=== PATIENT | female | born 1975 | race Caucasian/White ===

== ENCOUNTER 2019-07-03 12:46 | Emergency (ER) | payer OTHER ==
--- NOTE | 2019-07-03 13:12 | EDM.PDOC ---
ED HPI GENERAL MEDICAL PROBLEM - General Stated Complaint: HEART RATE DROPPED Time Seen by Provider: 07/03/19 13:11 Source of Information: Reports: Patient History Limitations: Reports: No Limitations - History of Present Illness INITIAL COMMENTS - FREE TEXT/NARRATIVE: 43-year-old female who reports that she did not really sleep well last night and she was somewhat tired today and it was busy this morning so she didn't eat breakfast and at approximately 11:30 AM she was feeling hungry, almost some nausea and she went to the cafeteria (as she works here at [facility], [place]) and ate lunch. Following lunch she was sitting should begin to feel somewhat dizzy and weak and felt like everything was going black. She looked at her foot but at that time and noted that her heart rate was 44. These symptoms lasted for about 30 minutes but seemed to be going away area after about 5 minutes. She did not pass out completely. She was brought over here by one of the nurses to the emergency department for evaluation at that time. She had no chest pain or shortness of breath. She did have some nausea but she had no vomiting. She now feels improved but feels quite anxious about this occurring. She apparently had a similar episode that was less severe while she was driving about 2-3 weeks ago. She pulled over and stopped and drank some water and rested and her symptoms are gone in about 5 minutes. No fevers. No chills. No abdominal pain. She really had no pain associated with this. She reports her pain as a 0/10. No diarrhea. No trauma. There are no other associated signs or symptoms. There are no other modifying factors. Onset: Today Duration: Improving Location: Reports: Other (No pain) Quality: Reports: Other (Not applicable) Severity: Moderate Improves with: Reports: Rest (And time) Worsens with: Reports: None Context: Reports: Other (As above) Associated Symptoms: Reports: Nausea/Vomiting, Weakness Treatments DIGITAL MEDIA INTERN: Reports: Other (see below) (Nothing) - Related Data Allergies Allergy/AdvReac Type Severity Reaction Status Date / Time No Known Allergies Allergy Verified 07/03/19 13:02 Home Meds: Home Meds Ibuprofen 800 mg PO ASDIRECTED PRN 07/03/19 [History] Levothyroxine Sodium 137 mcg PO ACBREAKFAST 07/03/19 [History] Past Medical History Cardiovascular History: Reports: Hypertension (She has not been on any antihypertensive medications for the past 13 years. 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[facility], [place]) ED ROS GENERAL - Review of Systems Review Of Systems: See Below Constitutional: Reports: Weakness (Generalized associated with this episode) HEENT: Reports: No Symptoms Respiratory: Reports: No Symptoms Cardiovascular: Reports: Lightheadedness, Other (Near syncope) Endocrine: Reports: No Symptoms GI/Abdominal: Reports: Nausea (Associated with this episode, resolved now) : Reports: No Symptoms Musculoskeletal: Reports: No Symptoms Skin: Reports: No Symptoms Neurological: Reports: Dizziness, Other (Near syncope) Psychiatric: Reports: Anxiety Hematologic/Lymphatic: Reports: No Symptoms Immunologic: Reports: No Symptoms ED EXAM, DIZZINESS - Physical Exam Exam: See Below Exam Limited By: No Limitations General Appearance: Alert, Anxious, Mild Distress, Obese Eye Exam: Bilateral Eye: EOMI, Normal Inspection, PERRL Ears: Normal External Exam, Hearing Grossly Normal Nose: Normal Inspection, Normal Mucosa, No Blood Throat/Mouth: Normal Inspection, Normal Lips, Normal Oropharynx, Normal Voice, No Airway Compromise Head Exam: Atraumatic, Normocephalic Neck: Normal Inspection, Supple, Non-Tender, Full Range of Motion Respiratory/Chest: No Respiratory Distress, Lungs Clear, Normal Breath Sounds, No Accessory Muscle Use, Chest Non-Tender Cardiovascular: Normal Peripheral Pulses, Regular Rate, Rhythm, No JVD GI/Abdominal: Normal Bowel Sounds, Soft, Non-Tender, No Mass Neurological: Alert, Normal Dorsiflexion, CN II-XII Intact, Normal Plantar Flexion, No Motor/Sensory Deficits, Oriented x 3 Back Exam: Normal Inspection, Full Range of Motion Extremities: Normal Inspection, Normal Range of Motion, Non-Tender, No Pedal Edema, Normal Capillary Refill Psychiatric: Anxious Skin Exam: Warm, Dry, Intact, Normal Color, No Rash EKG INTERPRETATION EKG Date: 07/03/19 Time: 12:45 Rhythm: NSR Rate (Beats/Min): 56 Bouse: Normal P-Wave: Present QRS: Other (Some evidence of LVH but normal otherwise) ST-T: Normal QT: Prolonged (Slightly prolonged) Comparison: NA - No Prior EKG Course - Vital Signs Last Recorded V/S: Last Vital Signs Temp 36.7 C 07/03/19 17:35 Pulse 68 07/03/19 17:35 Resp 18 07/03/19 17:35 BP 148/85 H 07/03/19 17:35 Pulse Ox 100 07/03/19 17:35 Orthostatic Blood Pressure [ 149/88 Standing] Orthostatic Blood Pressure [ 161/101 Sitting] Orthostatic Blood Pressure [ 144/77 Supine] No orthostatic changes on blood pressure or pulse. And patient felt well without dizziness or weakness when standing or changing position. - Orders/Labs/Meds Orders: Active Orders 24 hr Category Date Time Status Cardiac Monitoring [RC] .As Directed Care 07/03/19 13:25 Active Orthostatic Vital Signs [RC] ONETIME Care 07/03/19 13:25 Active EKG 12 Lead [EK] Routine Ther 07/03/19 13:24 Ordered Labs: Laboratory Tests 07/03/19 07/03/19 07/03/19 Range/Units 12:45 12:45 13:30 WBC 6.5 (4.5-12.0) X10-3/uL RBC 4.28 (3.23-5.20) x10(6)uL Hgb 12.6 (11.5-15.5) g/dL Hct 37.7 (30.0-51.3) % MCV 88.2 (80-96) fL MCH 29.4 (27.7-33.6) pg MCHC 33.3 (32.2-35.4) g/dL RDW 12.3 (11.5-15.5) % Plt Count 306 (125-369) X10(3)uL MPV 7.3 L (7.4-10.4) fL Neut % (Auto) 44.7 L (46-82) % Lymph % (Auto) 44.6 H (13-37) % Hampton % (Auto) 7.6 (4-12) % Eos % (Auto) 2 (1.0-5.0) % Baso % (Auto) 1 (0-2) % Neut # (Auto) 2.9 (1.6-8.3) # Lymph # (Auto) 2.9 (0.6-5.0) # Hampton # (Auto) 0.5 (0.0-1.3) # Eos # (Auto) 0.1 (0.0-0.8) # Baso # (Auto) 0.1 (0.0-0.2) # Sodium 139 (135-145) mmol/L Potassium 3.9 (3.5-5.3) mmol/L Chloride 102 (100-110) mmol/L Carbon Dioxide 26 (21-32) mmol/L BUN 13 (7-18) mg/dL Creatinine 1.0 (0.55-1.02) mg/dL Est Cr Clr Drug Dosing 76.59 mL/min Estimated GFR (MDRD) > 60 (>60) BUN/Creatinine Ratio 13.0 (9-20) Glucose 98 (80-116) mg/dL Calcium 9.0 (8.6-10.2) mg/dL Magnesium 1.9 (1.8-2.5) mg/dL Total Bilirubin 0.4 (0.1-1.3) mg/dL AST 18 (5-25) IU/L ALT 25 (12-36) U/L Alkaline Phosphatase 63 (56-112) IU/L Total Protein 8.1 H (6.0-8.0) g/dL Albumin 4.0 (3.5-5.2) g/dL Globulin 4.1 g/dL Albumin/Globulin Ratio 1.0 TSH, Ultra Sensitive 1.11 (0.36-3.74) IU/mL Urine Color (YELLOW) Urine Appearance (CLEAR) Urine pH (5.0-6.5) Ur Specific Oblong (1.010-1.025) Urine Protein (NEGATIVE) mg/dL Urine Glucose (UA) (NORMAL) mg/dL Urine Ketones (NEGATIVE) mg/dL Urine Occult Blood (NEGATIVE) Urine Nitrite (NEGATIVE) Urine Bilirubin (NEGATIVE) Urine Urobilinogen (NEGATIVE) mg/dL Ur Leukocyte Esterase (NEGATIVE) Urine RBC (0-5) Urine WBC (0-5) Ur Squamous Epith Cells (NS,R,O) Urine Bacteria (NS) Urine HCG, Qual (NEGATIVE) 07/03/19 07/03/19 Range/Units 14:08 14:08 WBC (4.5-12.0) X10-3/uL RBC (3.23-5.20) x10(6)uL Hgb (11.5-15.5) g/dL Hct (30.0-51.3) % MCV (80-96) fL MCH (27.7-33.6) pg MCHC (32.2-35.4) g/dL RDW (11.5-15.5) % Plt Count (125-369) X10(3)uL MPV (7.4-10.4) fL Neut % (Auto) (46-82) % Lymph % (Auto) (13-37) % Hampton % (Auto) (4-12) % Eos % (Auto) (1.0-5.0) % Baso % (Auto) (0-2) % Neut # (Auto) (1.6-8.3) # Lymph # (Auto) (0.6-5.0) # Hampton # (Auto) (0.0-1.3) # Eos # (Auto) (0.0-0.8) # Baso # (Auto) (0.0-0.2) # Sodium (135-145) mmol/L Potassium (3.5-5.3) mmol/L Chloride (100-110) mmol/L Carbon Dioxide (21-32) mmol/L BUN (7-18) mg/dL Creatinine (0.55-1.02) mg/dL Est Cr Clr Drug Dosing mL/min Estimated GFR (MDRD) (>60) BUN/Creatinine Ratio (9-20) Glucose (80-116) mg/dL Calcium (8.6-10.2) mg/dL Magnesium (1.8-2.5) mg/dL Total Bilirubin (0.1-1.3) mg/dL AST (5-25) IU/L ALT (12-36) U/L Alkaline Phosphatase (56-112) IU/L Total Protein (6.0-8.0) g/dL Albumin (3.5-5.2) g/dL Globulin g/dL Albumin/Globulin Ratio TSH, Ultra Sensitive (0.36-3.74) IU/mL Urine Color Yellow (YELLOW) Urine Appearance Clear (CLEAR) Urine pH 5.0 (5.0-6.5) Ur Specific Oblong 1.010 (1.010-1.025) Urine Protein Negative (NEGATIVE) mg/dL Urine Glucose (UA) Normal (NORMAL) mg/dL Urine Ketones Negative (NEGATIVE) mg/dL Urine Occult Blood Large H (NEGATIVE) Urine Nitrite Negative (NEGATIVE) Urine Bilirubin Negative (NEGATIVE) Urine Urobilinogen Normal (NEGATIVE) mg/dL Ur Leukocyte Esterase Negative (NEGATIVE) Urine RBC 0-5 (0-5) Urine WBC 0-5 (0-5) Ur Squamous Epith Cells Few H (NS,R,O) Urine Bacteria Rare H (NS) Urine HCG, Qual Negative (NEGATIVE) - Re-Assessments/Exams Free Text/Narrative Re-Assessment/Exam: 07/03/19 15:25: Patient's EKG, blood tests and urine test were all reassuringly normal. Patient has remained in a normal sinus rhythm varying anywhere from the 40s to the 70s and had been asymptomatic. At approximately 3:10 PM the patient did have another episode where she felt somewhat weak and with mild nausea and near syncopal. It was severe as before and it lasted only a few minutes. She did not tell anybody straightaway. I did review the monitor from the time that she reported this and the monitor showed sinus rhythm with a rate in the 50s. There was no evidence of heart block or any dysrhythmia. I did watch the patient 's monitor for about 5 or 10 minutes following this and she varied anywhere from the 40s to the 60s and she was completely asymptomatic with this. She had orthostatic vital signs done prior to this occurring and she had no symptoms with standing. I will discuss her case with the rides attendant nonetheless. 07/03/19 15:50: I discussed the case with Dr. Oconnor, rides attendant at [facility] in [place], and she felt that the symptoms occurring while the patient was lying down was somewhat concerning. I reviewed with her the use on the monitored during this episode and her response was that she was not able to see the patient and if I felt the patient needed monitoring that she would recommend monitoring the patient in the hospital overnight. If I did not feel the patient needed monitoring that I could send the patient home. 07/03/19 16:30: I discussed this with the patient. We have watched the patient on the monitor for renal half hours now and she has remained in a normal sinus rhythm during this entire period even the episode where she felt near syncopal again while lying down. I did tell the patient that admitting her to the hospital with monitoring would be a more sure and complete way to make sure that she was having no problems. I also gave her the option of going home with follow-up with Dr. Montejo with outpatient Holter monitoring. I did call and discuss this with Dr. Montejo and in the absence of any dysrhythmia noted on the monitor, he felt that this would be a reasonable option as well. In the end , the patient did not want to stay in the hospital and felt that charged with outpatient Holter monitoring was the choice that she would want. I did again offer to admit her for continued overnight observation and cardiac monitoring but she refuses this and wished to go home. The plan will be for the patient to call tomorrow to arrange for Holter monitoring and the patient will probably need to come in for placement of the Holter monitor tomorrow. Dr. Montejo will order this and follow the patient up after this has been done. Departure - Departure Time of Disposition: 17:30 Disposition: Home, Self-Care 01 Condition: Good Clinical Impression: Near syncope, Elevated blood pressure reading - Discharge Information Instructions: Near-Syncope Referrals: Antwon Montejo MD [ED Physician] - Forms: ED Department Discharge Additional Instructions: Your blood tests, urine tests and EKG were all reassuringly normal. You were monitored on the bolter helper for 4 hours in the emergency department and you remained in a normal heart rhythm. I am unsure why you are having your symptoms and if your slow heart rate is related to that. You need to call the hospital tomorrow for Dr. Huerta to set you up for a Holter monitor which should be able to be placed tomorrow. You should rest. You should drink plenty of fluids. You should eat normal meals. Back to the emergency department for recurrent feelings of dizziness or weakness, nausea or vomiting, fever, chest pain or any other concerning sign or symptom. - My Orders Last 24 Hours: My Active Orders 07/03/19 13:24 EKG 12 Lead [EK] Routine 07/03/19 13:25 Cardiac Monitoring [RC] .As Directed Orthostatic Vital Signs [RC] ONETIME - Assessment/Plan Last 24 Hours: My Active Orders 07/03/19 13:24 EKG 12 Lead [EK] Routine 07/03/19 13:25 Cardiac Monitoring [RC] .As Directed Orthostatic Vital Signs [RC] ONETIME
== END 2019-07-03 17:41 | disposition home or self-care (01) ==
LOC: FB.ED 12:46
DX: R55 Syncope and collapse (principal); I10 Essential (primary) hypertension; E03.9 Hypothyroidism, unspecified; E66.9 Obesity, unspecified; Z68.38 Body mass index [BMI] 38.0-38.9, adult; Z79.899 Other long term (current) drug therapy
CPT/HCPCS: 36415; 80053; 81001; 81025; 83735; 84443; 85025; 93005; 99284-25